=== PATIENT | male | born 1955 | race Caucasian/White ===

== ENCOUNTER → 2018-11-16 | Outpatient (CLI) | payer OTHER ==
[~2018-11-16] MED LIST: GADOBUTROL 10 ML VIAL IVP ONE
== END ==
LOC: FIMAGING 13:52
PROVIDERS: ATTEND Specialist
DX: R19.04 Left lower quadrant abdominal swelling, mass and lump (principal); R97.20 Elevated prostate specific antigen [PSA]
CPT/HCPCS: A9585